=== PATIENT | male | born 1950 | race Caucasian/White ===

== ENCOUNTER 2019-06-22 22:44 | Observation (INO) ==
[2019-06-23] MEDS ORDERED: MORPHINE 4 MG/1 ML VIAL IV PRN (04:10)
[2019-06-23] MEDS ORDERED: DOCUSATE SODIUM 100 MG CAPSULE PO PRN (04:10)
[2019-06-23] MEDS ORDERED: ACETAMINOPHEN 325 MG TABLET PO PRN (04:10)
[2019-06-23] MEDS ORDERED: ONDANSETRON 4 MG/2 ML VIAL IV PRN (04:10)
[2019-06-23] MEDS ORDERED: NITROGLYCERIN SL 0.4 MG TABLET SL PRN (04:34)
[2019-06-23 06:19] LABS: Basophils # 0.1 10*3/uL (0.0-0.2); Eosinophils # 0.4 10*3/uL (0.0-0.87); Eosinophils % 5.6 % (0.00-10.9); Hematocrit 41.1 VOL% (42.0-52.0); Hemoglobin 13.5 GM/DL (14.0-18.0); Immature Granulocytes % 0.2 %; Immature Granulocytes Absolute 0.01 #; Lymphocytes # 1.7 10*3/uL (1.4-4.0); Lymphocytes % 26.6 % (21.2-54.2); Mean Corpuscular HGB Conc 32.8 GM/DL (32-36); Mean Corpuscular Volume 89.5 FL (87-102); Monocytes % 8.9 % (1.7-12.7); Neutrophils % 57.7 % (38.7-73.9); Platelet Count 215 T/CUMM (130-400); Red Blood Count 4.59 MC/CUMM (3.8-5.5); White Blood Count 6.3 T/CUMM (4-12)
[2019-06-23 06:26] LABS: INR 0.9
[2019-06-23 06:44] LABS: Albumin 3.4 G/DL (3.4-5.0); Bilirubin,Total 0.6 MG/DL (0.2-1.0); Calcium 8.2 MG/DL (8.5-10.1); Osmolality,Calculated 289.6 MOS/KG (273-304); Total Protein 6.4 G/DL (6.4-8.3)
[2019-06-23 06:58] LABS: Risk Ratio 4.44; VLDL CHOLESTEROL 17.6 MG/DL
[2019-06-23] MEDS ORDERED: ENOXAPARIN 40 MG/0.4 ML SYRINGE SUBCUT SCH (09:00)
[2019-06-23 10:28] LABS: Troponin I < 0.015 NG/ML (0.00-0.045)
[2019-06-23 12:57] VITALS: BP 118/68
[2019-06-24] MEDS ORDERED: LOSARTAN 25 MG TABLET PO SCH (09:00)
== END 2019-06-23 15:08 | disposition home or self-care (01) ==
LOC: N.2W → SUATTDRO 06-23 00:25
PROVIDERS: ADMIT Internal Medicine; ATTEND Internal Medicine